=== PATIENT | male | born 1960 | race Caucasian/White ===

== ENCOUNTER 2018-02-02 08:22 | Emergency (ER) | payer OTHER ==
[~2018-02-02] VITALS: Ht 180.3 cm; Wt 172.4 kg
[~2018-02-02 08:22] MED LIST: ASPIRIN81 M4 PO; ATORVASTATIN CA40 M1 PO; DOXYCYCLINE HY100 M4 PO; MELOXICAM15 M1 PO; NITROGLYCERIN0.4 M1 SL; VICODIN 5-3001 EACH PO
[2018-02-02 08:44] LABS: ABSOLUTE BASOPHIL COUNT 0.2 /CUMM (0.0-0.2); ABSOLUTE EOSINOPHIL COUNT 0.2 /CUMM (0.0-0.7); ABSOLUTE GRANULOCYTE CT 5.3 /CUMM (1.4-6.5); ABSOLUTE LYMPH COUNT 2.3 /CUMM (1.2-3.4); ABSOLUTE MONOCYTE COUNT 0.5 /CUMM (0.10-0.60); BASOPHIL % 1.8 % (0.0-2.0); EOSINOPHIL % 2.5 % (0-5); GRANULOCYTE % 62.9 % (42.2-75.2); HEMATOCRIT 38.5 % (42-52); MEAN CORPUSCULAR HGB 30.2 PG (27.0-31.0); MEAN CORPUSCULAR HGB CONC 35.5 G/DL (33.0-37.0); MEAN CORPUSCULAR VOLUME 85.2 FL (80.0-94.0); PLATELET COUNT 235 /CUMM (130-400); RBC DISTRIBUTION WIDTH 13.4 % (11.5-14.5); RED BLOOD CELL CT 4.52 /CUMM (4.70-6.10); WHITE BLOOD CELL COUNT 8.4 /CUMM (4.8-10.8)
--- NOTE | 2018-02-02 10:23 | ED GI/GU/ABDOMINAL COMPLAINT ---
History of Present Illness General Chief Complaint: Abdominal Pain/Flank Pain Stated Complaint: RT SIDE ABDOMINAL PAIN Source: patient Exam Limitations: no limitations Vital Signs & Intake/Output Vital Signs & Intake/Output Vital Signs Date Time Temp Pulse Resp B/P B/P Pulse O2 O2 Flow FiO2 Mean Ox Delivery Rate 02/02 1233 69 18 172/89 98 Room Air 02/02 1148 Room Air 02/02 0825 95.9 67 18 180/98 Allergies Coded Allergies: lorazepam (From ATIVAN) (Intermediate, AGITATION 02/02/18) Reconcile Medications Aspirin (Aspirin*) 81 MG TAB.CHEW 81 MG PO DAILY HEART HEALTH . Atorvastatin Calcium 40 MG TABLET 40 MG PO 1700 Heart artieries . Hydrocodone/Acetaminophen (Vicodin 5-300 MG Tablet) 5 MG-300 MG TABLET 1 TAB PO BID PRN PAIN Ibuprofen 800 MG TABLET 1 TAB PO TID PAIN Meloxicam 15 MG TABLET 1 TAB PO DAILY PRN PAIN Nitroglycerin 0.4 MG TAB.SUBL 1 TAB SL AD CHEST PAIN 1st sign of attack; may repeat every 5 minutes until relief; if pain persists after 3 tablets in 15 minutes, prompt medical att . Oxycodone HCl/Acetaminophen (Percocet 5-325 MG Tablet) 5 MG-325 MG TABLET 1-2 TAB PO BID PAIN Triage Note: PT TO ED WITH SUDDEN ONSET OF RIGHT LOWER ABD PAIN SINCE 3AM THIS MORNING "PUT HEAT ON IT AND IT EASED UP A LITTLE BIT", C/O SLIGHT NAUSEA, NO VOMITING OR DIARRHEA. HX KIDNEY STONES "DOESN'T FEEL LIKE THAT". Triage Nurses Notes Reviewed? yes Onset: Abrupt Duration: hour(s):, constant Timing: recent history Quality/Severity: moderate, sharpness, severe Location: right lower quadrant Radiation: no radiation Activities at Onset: none No Modifying Factors: none HPI: 57-year-old male comes into the emergency room with complaints of right-sided abdominal pain has been going on since about 4 AM this morning. Pain woke the patient up out of his sleep. He's had some associated nausea. Denies any fever chills vomiting. Denies any changes in bowel movement. Denies any prior abdominal surgeries. He denies any chest pain shortness of breath. Nothing seems to make the symptoms better. (Dk MONTES,Nile) Past History Travel History Traveled to [place] past 21 day No Medical History Any Pertinent Medical History? 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 No (Nile Lara) Review of Systems Review of Systems Constitutional: Reports: no symptoms. EENTM: Reports: no symptoms. Respiratory: Reports: no symptoms. Cardiovascular: Reports: no symptoms. GI: Reports: see HPI. Genitourinary: Reports: no symptoms. Musculoskeletal: Reports: no symptoms. Skin: Reports: no symptoms. Neurological/Psychological: Reports: no symptoms. Hematologic/Endocrine: Reports: no symptoms. Immunologic/Allergic: Reports: no symptoms. All Other Systems: Reviewed and Negative (Nile Lara) Physical Exam Physical Exam General Appearance: well developed/nourished, alert, awake, mild distress Head: atraumatic Eyes: Bilateral: normal appearance. Ears, Nose, Throat, Mouth: hearing grossly normal, moist mucous membrane Neck: normal inspection Respiratory: normal breath sounds, no respiratory distress Cardiovascular: regular rate/rhythm Gastrointestinal: soft, tenderness (RLQ) Back: normal inspection Extremities: normal range of motion Neurologic/Psych: awake, alert, oriented x 3, normal gait, normal mood/affect Skin: intact, normal color Core Measures ACS in differential dx? No Sepsis Present: No Sepsis Focused Exam Completed? No (Nile Lara) Progress Differential Diagnosis: appendicitis, biliary colic, cholecystitis, diverticulitis, gastritis, ischemic bowel, pancreatitis, perforated viscous, SBO , ureterolithiasis, UTI/pyelo, MUSCLE STRAIN Plan of Care: Orders Procedure Date/time Status Add-on Test (ER Only) 02/02 1211 Active EKG 02/02 1211 Active TROPONIN LEVEL 02/02 0830 Complete URINALYSIS 02/02 0828 Complete LIPASE 02/02 0828 Complete LACTIC ACID 02/02 0828 Complete COMPREHENSIVE METABOLIC PANEL 04/19 0828 Complete CBC WITHOUT DIFFERENTIAL 02/03 828 Complete AMYLASE 02/03 828 Complete Laboratory Tests 02/02/18 1128: Lactic Acid Cancelled 02/02/18 0835: Urine Color YEL, Urine Clarity CLEAR, Urine pH 6.5, Ur Specific [place] 1.010, Urine Protein NEG, Urine Ketones NEG, Urine Nitrite NEG, Urine Bilirubin NEG, Urine Urobilinogen 0.2, Ur Leukocyte Esterase NEG, Ur Microscopic EXAM NOT REQUIRED, Urine Hemoglobin NEG, Urine Glucose NEG 02/02/18 0830: Anion Gap 12, Estimated GFR > 60, BUN/Creatinine Ratio 19.0, Glucose 103 H, Lactic Acid 1.1, Calcium 9.7, Total Bilirubin 0.6, AST 16 L, ALT 27, Alkaline Phosphatase 69, Troponin I < 0.01, Total Protein 7.4, Albumin 4.2, Globulin 3.2, Albumin/Globulin Ratio 1.3, Amylase 48, Lipase 87, CBC w Diff NO MAN DIFF REQ, RBC 4.52 L, MCV 85.2, MCH 30.2, MCHC 35.5, RDW 13.4, MPV 9.0, Gran % 62.9, Lymphocytes % 27.1, Monocytes % 5.7, Eosinophils % 2.5, Basophils % 1.8, Absolute Granulocytes 5.3, Absolute Lymphocytes 2.3, Absolute Monocytes 0.5, Absolute Eosinophils 0.2, Absolute Basophils 0.2 Diagnostic Imaging: Viewed by Me: CT Scan. Discussed w/RAD: CT Scan. Radiology Impression: PATIENT: EDNA BELLE PRESENT AGE: 57 PATIENT ACCOUNT NO: [id number] : 62 LOCATION: [facility] ORDERING PHYSICIAN: Nile MONTES SERVICE DATE: 02/02/18 EXAM TYPE: CAT - CT ABD & PELVIS W IV CONTRAST EXAMINATION: CT ABDOMEN AND PELVIS WITH CONTRAST CLINICAL INFORMATION: Right-sided abdominal pain COMPARISON: None TECHNIQUE: Multidetector volumetric imaging was performed of the abdomen and pelvis following IV administration of 95 mL of Optiray 320 intravenous contrast. Sagittal and coronal reformatted images were obtained on the technologist's workstation. DLP: 1525 mGy-cm FINDINGS: LUNG BASES: The visualized lung bases are unremarkable. LIVER, GALLBLADDER, AND BILIARY TREE: The liver is normal in size, shape, and attenuation. No focal hepatic lesion or biliary ductal dilatation is present. The gallbladder is unremarkable with no evidence of radiopaque gallstones, gallbladder wall thickening, or obvious pericholecystic inflammatory changes. PANCREAS: Unremarkable. SPLEEN: Unremarkable. ADRENAL GLANDS: Unremarkable. KIDNEYS AND URETERS: The kidneys are normal in size, shape , and attenuation. No hydronephrosis, hydroureter, or calculi seen. No perinephric stranding. BLADDER: Unremarkable. GASTROINTESTINAL TRACT: The small and large bowel are unremarkable. The appendix is unremarkable. ABDOMINAL WALL: No significant hernia is appreciated. LYMPH NODES: Normal. VASCULAR: Unremarkable. PELVIC VISCERA: Unremarkable. OSSEOUS STRUCTURES: Moderate L5-S1 degenerative disc disease. L4-L5 facet arthropathy. No suspicious bone lesion. IMPRESSION: No focal inflammatory process or obstruction. Normal appendix. DICTATED BY: Alberto Paredes MD DATE/TIME DICTATED:02/02/181142 CORDUROY BRUSHER OPERATOR:JOSE MIGUEL DATE/TIME TRANSCRIBED:02/02/181142 CONFIDENTIAL, DO NOT COPY WITHOUT APPROPRIATE AUTHORIZATION. <Electronically signed in Other Vendor System> SIGNED BY: Alberto Paredes MD 02/02/18 1150 Initial ED EKG: normal sinus rhythm, BORDERLINE T WAVE ABNORMALITIES Comments: 02/02/2018 1:36:13 PM Patient clinically looks well. Patient is in no apparent distress. Patient is nontoxic-appearing. After all the results were discussed the patient mentioned that yesterday he was lifting plywood and he felt a twinge in the right side of his abdomen . He did not think much of it initially but then the pain started later on. No acute findings on CT scan or blood work. Patient feels better after morphine. Likely muscular related. Patient was recommended to follow up with primary care doctor. Return if any other concerns. Understands and agrees with plan of care. (Dk MONTES,Nile) Departure Departure Disposition: HOME OR SELF CARE Condition: Stable Clinical Impression Primary Impression: Abdominal pain Secondary Impressions: Muscle strain Referrals: Lennie RIVERA,Jamil Butler (PCP/Family) Additional Instructions: Take Percocet and ibuprofen as prescribed. Follow-up with your primary care doctor. Return if any concerns worsening symptoms. Please go over all results of today's visit with your primary care doctor. Contact your primary care doctor to let them know you were here in the emergency room. There may be nonspecific findings which may not be related to your visit today here in the emergency room but may require further evaluation and chronic monitoring by your primary care doctor. If you had a laceration today the chance of foreign body always remains. You should follow-up with your primary care doctor for recheck in 3-5 days for a wound check. If you had an x-ray done there is a chance that a fracture could have been missed on initial read and you should follow-up with your primary care doctor for repeat x-rays if symptoms persist. If your blood pressure was elevated here in the emergency room please have rechecked by [facility] primary care doctor within the next 48. If you were prescribed a narcotic here in the emergency room or any type of controlled substances you're not allowed to drive while taking this medication or operate any type of heavy machinery. Narcotics can make you feel lightheaded dizziness nausea and can cause constipation. You may need to knot picker cloth a stool softener. Thank you for choosing [facility] emergency room. Please return to the emergency room immediately if you have any other concerns worsening of symptoms. Departure Forms: Customer Survey General Discharge Information Prescriptions: Current Visit Scripts Oxycodone HCl/Acetaminophen (Percocet 5-325 MG Tablet) 1-2 TAB PO BID #10 TAB Ibuprofen 1 TAB PO TID #30 TAB (Nile Lara) PA/DIRECTOR OF INTEGRATED MARKETING Co-Sign Statement Statement: ED Attending supervision documentation- I saw and evaluated the patient. I have also reviewed all the pertinent lab results and diagnostic results. I agree with the findings and the plan of care as documented in the PA's/DIRECTOR OF INTEGRATED MARKETING's documentation. x I have reviewed the ED Record and agree with the PA's/DIRECTOR OF INTEGRATED MARKETING's documentation. [] Additions or exceptions (if any) to the PAs/DIRECTOR OF INTEGRATED MARKET[employer]'s note and plan are summarized below: [] (Manuelito RIVERA,Saulo)
--- NOTE | 2018-02-02 11:50 | CT SCAN REPORT ---
EXAMINATION: CT ABDOMEN AND PELVIS WITH CONTRAST CLINICAL INFORMATION: Right-sided abdominal pain COMPARISON: None TECHNIQUE: Multidetector volumetric imaging was performed of the abdomen and pelvis following IV administration of 95 mL of Optiray 320 intravenous contrast. Sagittal and coronal reformatted images were obtained on the technologist's workstation. DLP: 1525 mGy-cm FINDINGS: LUNG BASES: The visualized lung bases are unremarkable. LIVER, GALLBLADDER, AND BILIARY TREE: The liver is normal in size, shape, and attenuation. No focal hepatic lesion or biliary ductal dilatation is present. The gallbladder is unremarkable with no evidence of radiopaque gallstones, gallbladder wall thickening, or obvious pericholecystic inflammatory changes. PANCREAS: Unremarkable. SPLEEN: Unremarkable. ADRENAL GLANDS: Unremarkable. KIDNEYS AND URETERS: The kidneys are normal in size, shape, and attenuation. No hydronephrosis, hydroureter, or calculi seen. No perinephric stranding. BLADDER: Unremarkable. GASTROINTESTINAL TRACT: The small and large bowel are unremarkable. The appendix is unremarkable. ABDOMINAL WALL: No significant hernia is appreciated. LYMPH NODES: Normal. VASCULAR: Unremarkable. PELVIC VISCERA: Unremarkable. OSSEOUS STRUCTURES: Moderate L5-S1 degenerative disc disease. L4-L5 facet arthropathy. No suspicious bone lesion. IMPRESSION: No focal inflammatory process or obstruction. Normal appendix.
[2018-02-02 12:33] VITALS: BP 172/89
[2018-02-02] MEDS ORDERED: IBUPROFEN800 M1 PO (12:35)
[2018-02-02] MEDS ORDERED: PERCOCET 5-3251 EACH PO (12:35)
== END 2018-02-02 12:41 ==
LOC: ERH 08:22
PROVIDERS: Emergency Medicine
DX: S39.011A Strain of muscle, fascia and tendon of abdomen, initial encounter (principal); X58.XXXA Exposure to other specified factors, initial encounter; Y92.9 Unspecified place or not applicable; Y93.9 Activity, unspecified
CPT/HCPCS: 74177; 81003; 93005; 93010; 96374; 96375; 96376; J2405

== ENCOUNTER 2018-03-22 06:41 | Observation (INO) | payer OTHER ==
[~2018-03-22] VITALS: Ht 180.3 cm; Wt 174.7 kg
[~2018-03-22 06:41] MED LIST changes: +IBUPROFEN800 M1 PO; +PERCOCET 5-3251 EACH PO
--- NOTE | 2018-03-22 06:46 | ED CARDIAC/CP/PALPITATIONS ---
History of Present Illness General Chief Complaint: Chest Pain Stated Complaint: CP Source: patient, EMS Exam Limitations: no limitations Vital Signs & Intake/Output Vital Signs & Intake/Output Vital Signs Date Time Temp Pulse Resp B/P B/P Pulse O2 O2 Flow FiO2 Mean Ox Delivery Rate 03/22 0645 97.9 67 24 188/99 96 Room Air Allergies Coded Allergies: lorazepam (From ATIVAN) (Intermediate, AGITATION 02/02/18) Triage Nurses Notes Reviewed? yes Onset: Gradual Duration: hour(s):, better, gone now Timing: recent history Quality/Severity: moderate Location: central Radiation: LEFT SHOULDER Activities at Onset: sleep Modifying Factors: Improves With: nitroglycerin, oxygen. Nitro Today/Relief: 0.4 mg x 3, provided by EMS, provided at home Aspirin Today: 81 mg x 4, provided at home Associated Symptoms: shortness of breath HPI: 58-year-old gentleman history of unstable angina but no history of heart attack, presents with 5-6 out of 10 substernal chest pressure that radiated to his left shoulder. He states that he awoke approximately 2 hours prior to presentation in the emergency department with the discomfort. He notes that he took asa 81x4 at home, 2 nitros at home, "and I still had the pain, but then the medics gave me a nitro and the pain went away completely." He notes mild -moderate shortness of breath. NO fever, chills, wheezing, abdominal pain. He is otherwise well. (Antoinette RIVERA,Mehul Cortez) Reconcile Medications Atorvastatin Calcium 40 MG TABLET 40 MG PO 1700 Heart artieries . Lisinopril 20 MG TABLET 1 TAB PO DAILY HEART (Reported) (Alberto Hay DO) Past History Travel History Traveled to [place] past 21 day No Medical History Any Pertinent Medical History? 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 No (Antoinette RIVERA,Mehul Cortez) Review of Systems Review of Systems Constitutional: Denies: see HPI. (Antoinette RIVERA,Mehul Cortez) Physical Exam Physical Exam Cardiovascular: regular rate/rhythm, see below Comments: Review of Systems - except as otherwise noted in HPI Review of Systems Constitutional:no symptoms. EENTM:no symptoms. Respiratory:no symptoms. Cardiovascular:no symptoms. GI:no symptoms. Genitourinary:no symptoms. Musculoskeletal:no symptoms. Skin:no symptoms. Neurological/Psychological:no symptoms. Hematologic/Endocrine:no symptoms. Immunologic/Allergic:no symptoms. All Other Systems: Reviewed and Negative Physical Exam Physical Exam General Appearance: well developed/nourished, no apparent distress Head: atraumatic, normal appearance Eyes: Bilateral: normal appearance. Ears, Nose, Throat: normal pharynx, normal ENT inspection Neck: normal inspection, supple, full range of motion Respiratory: normal breath sounds, chest non-tender, no respiratory distress, quiet respiration, lungs clear Cardiovascular: regular rate/rhythm Gastrointestinal: normal bowel sounds, soft, non-tender, no organomegaly Back: normal inspection, normal range of motion Extremities: normal inspection, normal capillary refill, normal range of motion, no edema Neurologic/Psych: no motor/sensory deficits, awake, alert, oriented x 3 Skin: intact, normal color, warm/dry Core Measures ACS in differential dx? Yes (pt took aspirin at home) CVA/TIA Diagnosis No Sepsis Present: No Sepsis Focused Exam Completed? No (Antoinette RIVERA,Mehul Cortez) Progress Differential Diagnosis: AMI, CHF/pulm edema, costochondritis, myocarditis, unstable angina Plan of Care: Orders Procedure Date/time Status Heart Healthy Diet 03/[address] in observation 03/22 819 Active ED Holding Orders 03/22 819 Active Code Status 03/22 08 Active TROPONIN LEVEL 03/22 645 Complete LIPASE 03/22 645 Complete HEPATIC FUNCTION PANEL 03/22 645 Complete D-DIMER 03/22 645 Complete CBC WITHOUT DIFFERENTIAL 03/22 645 Complete BASIC METABOLIC PANEL 03/22 645 Complete AMYLASE 03/22 645 Complete EKG 03/22 06 Active Laboratory Tests 03/22/18 0703: Anion Gap 11, Estimated GFR > 60, BUN/Creatinine Ratio 24.5, Glucose 101 H, Calcium 9.7, Total Bilirubin 0.3, Direct Bilirubin 0.2, AST 17, ALT 26, Alkaline Phosphatase 61, Troponin I < 0.01, Total Protein 6.9, Albumin 3.9, Amylase 46, Lipase 82, D-Dimer High Sensitivty < 200, CBC w Diff NO MAN DIFF REQ, RBC 4.51 L, MCV 86.2, MCH 29.8, MCHC 34.6, RDW 13.3, MPV 9.1, Gran % 62.5, Lymphocytes % 26.8, Monocytes % 6.6, Eosinophils % 3.4, Basophils % 0.7, Absolute Granulocytes 5.6, Absolute Lymphocytes 2.4, Absolute Monocytes 0.6, Absolute Eosinophils 0.3, Absolute Basophils 0.1 Diagnostic Imaging: Viewed by Me: Radiology Read. Discussed w/RAD: Radiology Read. Initial ED EKG: normal axis, normal intervals, normal p-waves, normal QRS complex, normal sinus rhythm Hand-Off Endorsed To: Alberto Hay DO Endorsed Time: 0700 Pending: labs, Xray Comments: pt chest pain free upon arrival to ED. (Antoinette RIVERA,Mehul Cortez) Comments: Attending addendum at 8:[address] Alberto Hay: I assumed care from Dr. Curry at 7 AM. At that time the patient was chest pain-free after 3 doses of nitroglycerin (2 at home and one by EMS) and we were awaiting chest x-ray and troponin results. Chest x-ray resulted showing possible retrocardiac opacity, however the view was limited by his habitus. Troponin was negative. Discussed the case with Dr. Luther from cardiology who agreed with my recommendation for hospitalization for nitroglycerin responsive chest pain. (Alberto Hay DO) Departure Departure Disposition: STILL A PATIENT Condition: Stable Clinical Impression Primary Impression: Chest pain Referrals: Lennie RIVERA,Jamil Butler (PCP/Family) Departure Forms: Customer Survey General Discharge Information (Antoinette RIVERA,Mehul Cortez) Observation Note Spoke With: Desire Mckeon MD Physician Advisor Notified: SERENA GARZA DO Place Patient In: ED Observation Rationale for Observation: My rational for observation is as follows patient has cardiac chest pain with negative troponin and ECG. He will likely undergo troponin trending and cardiology consultation but the expectation is that he will be discharged from the hospital and under 24 hours. (Alberto Hay DO) Critical Care Note Critical Care Note Critical Care Time: non-applicable (Antoinette RIVERA,Mehul Cortez)
--- NOTE | 2018-03-22 07:22 | RADIOLOGY REPORT ---
EXAMINATION: XR PORTABLE CHEST CLINICAL INFORMATION: Chest pain COMPARISON: Multiple priors, most recent 08/17/2017. TECHNIQUE: Portable frontal view of the chest was obtained. Study is limited due to patient body habitus. FINDINGS: The cardiomediastinal silhouette is unchanged. No significant cardiomegaly. Suggestion of left retrocardiac opacity. Remainder of the lungs is relatively clear. The peripheral hemithoraces are not well evaluated due to underpenetration. No evidence of pneumothorax. Osseous detail is limited. IMPRESSION: Limited exam due to patient body habitus. Possible left retrocardiac opacity.
[2018-03-22 07:26] LABS: ABSOLUTE BASOPHIL COUNT 0.1 /CUMM (0.0-0.2); ABSOLUTE EOSINOPHIL COUNT 0.3 /CUMM (0.0-0.7); ABSOLUTE GRANULOCYTE CT 5.6 /CUMM (1.4-6.5); ABSOLUTE LYMPH COUNT 2.4 /CUMM (1.2-3.4); ABSOLUTE MONOCYTE COUNT 0.6 /CUMM (0.10-0.60); BASOPHIL % 0.7 % (0.0-2.0); EOSINOPHIL % 3.4 % (0-5); GRANULOCYTE % 62.5 % (42.2-75.2); HEMATOCRIT 38.9 % (42-52); MEAN CORPUSCULAR HGB 29.8 PG (27.0-31.0); MEAN CORPUSCULAR HGB CONC 34.6 G/DL (33.0-37.0); MEAN CORPUSCULAR VOLUME 86.2 FL (80.0-94.0); MEAN PLATELET VOLUME 9.1 FL (7.4-10.4); PLATELET COUNT 238 /CUMM (130-400); RBC DISTRIBUTION WIDTH 13.3 % (11.5-14.5); RED BLOOD CELL CT 4.51 /CUMM (4.70-6.10); WHITE BLOOD CELL COUNT 8.9 /CUMM (4.8-10.8)
[2018-03-22] MEDS ORDERED: LISINOPRIL20 M1 PO (08:14)
--- NOTE | 2018-03-22 08:43 | History & Physical ---
Linnea RIVERA,Heidi 03/22/18 0842: General Information and HPI MD Statement: I have seen and personally examined EDNA BELLE and documented this H&P. The patient is a 58 year old M who presented with a patient stated chief complaint of [CHEST PAIN]. Source of Information: patient Exam Limitations: no limitations History of Present Illness: Patient is 58-year-old male with past medical history significant for unstable angina, hypertension, MARTA on CPAP, nephrolithiasis, gout, a rotator cuff tear presented to [facility] with sudden onset chest pain started in the middle of the night this morning. Patient was in his usual state of health after his recent discharge August and remained active. A week ago he started developing pink eye. For the past few days he has been experiencing feeling weak, wet cough, nasal discharge. Today morning he started experiencing substernal chest pain radiating down the left arm - stabbing in nature 5/10 intensity, associated with nausea. He did have shortness of breath with the pain. He started taking aspirin along with nitroglycerin which did not relieve his pain. He did describe his pain like gas pocket in the back of the chest. he denies recent intake of NSAIDs, heart burning, change in pain with position/breathing. During my interview patient was very short of breath, denies any chest pain. Meds - On lisinopril, atorvastatin, tobramycin eye drops family history Mother - stroke at 40's Father - diabetes and CHF. Social Quit smoking 25yrs ago, Denies alcohol/drug intake Surgical Rotator cuff tear 2 Cardiac caths - clean coronaries. last one my . Allergies/Medications Allergies: Coded Allergies: lorazepam (From ATIVAN) (Intermediate, AGITATION 02/02/18) Home Med list Atorvastatin Calcium 40 MG TABLET 40 MG PO 1700 Heart artieries . 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 spouse Services at Home: None Smoking Status: Former Smoker ETOH Use: denies use Illicit Drug Use: denies illicit drug use Functional Ability ADLs Independent: dressing, eating, toileting, bathing. Ambulation: independent IADLs Independent: shopping, housework, finances, food prep, telephone, transportation , medication admin. Review of Systems Review of Systems Constitutional: Reports: see HPI. EENTM: Reports: eye drainage, nasal congestion. Cardiovascular: Reports: see HPI. Respiratory: Reports: see HPI. GI: Reports: see HPI. Genitourinary: Reports: see HPI. Musculoskeletal: Reports: see HPI. Exam & Diagnostic Data Last 24 Hrs of Vital Signs/I&O Vital Signs Date Time Temp Pulse Resp B/P B/P Pulse O2 O2 Flow FiO2 Mean Ox Delivery Rate 03/22 0645 97.9 67 24 188/99 96 Room Air Intake & Output 03/22 1600 03/22 0800 03/22 0000 Intake Total Output Total Balance Patient 171.912 kg Weight Physical Exam General Appearance Alert, Oriented X3, Cooperative, No Acute Distress Skin No Rashes, No Breakdown Skin Temp/Moisture Exam: Warm/Dry Sepsis Skin Exam (color): Normal for Ethnicity HEENT Atraumatic, PERRLA, EOMI, erythematous, erythematous mucous membranes Neck Supple Cardiovascular Normal S1, Normal S2, No Murmurs Lungs Clear to Auscultation, Normal Air Movement Abdomen Normal Bowel Sounds, Soft, No Tenderness Neurological Normal Gait, Normal Speech, Strength at 5/5 X4 Ext, Normal Tone Extremities No Clubbing, No Cyanosis, No Edema Vascular Normal Pulses, Pulses Symmetrical Body Front and Back (Adult) 1) conjunctivitis Last 24 Hrs of Labs/Jamal: Laboratory Tests 03/22/18 1018: pH 7.44, pCO2 35, pO2 110 H, HCO3 23, ABG O2 Sat (Measured) 97.0, P-50 (Temp Corrected) N, Carboxyhemoglobin 0.5 L, O2 Concentration % 2LPM, O2 Delivery Method NC, Phlebotomy Draw Site RIGHT RADIAL 03/22/18 0703: Anion Gap 11, Estimated GFR > 60, BUN/Creatinine Ratio 24.5, Glucose 101 H, Hemoglobin A1c Pending, Uric Acid 9.3 H, Calcium 9.7, Total Bilirubin 0.3, Direct Bilirubin 0.2, AST 17, ALT 26, Alkaline Phosphatase 61, Troponin I < 0.01 , Total Protein 6.9, Albumin 3.9, Amylase 46, Lipase 82, TSH Pending, Free T4 Pending, D-Dimer High Sensitivty < 200, CBC w Diff NO MAN DIFF REQ, RBC 4.51 L, MCV 86.2, MCH 29.8, MCHC 34.6, RDW 13.3, MPV 9.1, Gran % 62.5, Lymphocytes % 26.8, Monocytes % 6.6, Eosinophils % 3.4, Basophils % 0.7, Absolute Granulocytes 5.6, Absolute Lymphocytes 2.4, Absolute Monocytes 0.6, Absolute Eosinophils 0.3, Absolute Basophils 0.1 Microbiology 03/22 958 LOWER RESP: Respiratory Culture - ORD 03/22 958 LOWER RESP: Gram Stain - ORD 03/22 957 NASOPHARYN: Influenza Virus A & B Rapid Smear - COMP Diagnostic Data EKG Results NSR with j point elevation on V3, flat T wave in lead III. CXR Results IMPRESSION: Limited exam due to patient body habitus. Possible left retrocardiac opacity. Assessment/Plan Assessment: Patient is a fairly 58 male with significant history of unstable angina, twice negative coronary catheterizations in the past, MARTA on CPAP, hypertension presents to [facility] with sudden onset stabbing substernal 5/10 chest pain in setting of a viral infection. Vital signs at the time of presentation are significant for a blood pressure of 188/99 mmHg, saturating well on RA. Physical exam is unremarkable. Labs did show normal white count, H&H stable, normal electrolyte pattern with BUN/Cr of 27/1.1. D-Dimer <200. CXR concerning for retrocardiac opacity. Differentials 1. Viral illness causing unstable angina 2. Hypertensive urgency in the setting of sympathetic response to infection 3. Viral myocarditis 4. Demand induced symptomatic ACS 5. Heart burn Plan Admit to telemetry floor as observation Chest pain Etiologies: viral stress or atherosclerotic progression (stable angina) or unstable angina. Most likely cardiac in nature, not responding to ASA and Nitroglycerine suggest other etiologies. Probably GI related given use of NSAID in the past. He had a normal stress test in the recent admission on . * Serial EKG and trop * Discontinue Lisinopril in the setting of dry cough * Started on ASA, Losartan 25mg daily, Imdur 30mg daily * Continue Atorvastatin * Cardiology consulted * NPO for stress test tomorrow HTN D/C lisinopril - start losartan 25mg daily and titrate up slowly MARTA on CPAP ABG unremarkable. BMI - 53. D-Dimer negative, low suspicion for PE, active at baseline. Retrocardiac opacity on CXR Patient had viral illness lately. Afebrile, normal white count. Appears congested but normal physical exam. * Monitor off antibiotics * Negative flu swab * Repeat PA and lateral CXR tomorrow * Check CBC, BEP DVT prophylaxis SC heparin Code status Full Code As Ranked By This Provider Problem List: 1. Unstable angina 2. Chest pain at rest 3. HTN (hypertension) 4. Obesity Core Measures/Misc (07/03) Acute Coronary Syndrome ACS Diagnosis: Yes Last Known EF % 50 No TIERRA/ARB d/t EF >40% Congestive Heart Failure Congestive Heart Failure Diagnosis No Cerebrovascular Accident CVA/TIA Diagnosis: No VTE (View Protocol) VTE Risk Factors Acute Medical Illness No Mechanical VTE Prophylaxis d/t N/A MechProphylax Ordered No VTE Pharm Prophylaxis d/t NA PharmProphylax ordered Sepsis (View protocol) Sepsis Present: No If YES complete Sepsis Event Note If YES complete Sepsis Event Note Resident Review Statement Resident Statement: examined this patient, discussed with internet marketer, agreed with internet marketer, discussed with family, reviewed EMR data (avail), discussed with nursing , discussed with case mgmt, reviewed images, amended to note Other Findings: as above Lyric Jara 03/22/18 1330: Core Measures/Misc (07/03) Sepsis (View protocol) If YES complete Sepsis Event Note If YES complete Sepsis Event Note Attending MD Review Statement Attending Statement Attending MD Statement: examined this patient, discuss w/resident/PA/AURICULOTHERAPIST, agreed w/resident/PA/AURICULOTHERAPIST, discussed with family, reviewed EMR data (avail), discussed with nursing, discussed with case mgmt, reviewed images, amended to note Attending Assessment/Plan: Patient here for atypical chest pain in intermediate to high risk patient. Patient placed in observation status in telemetry. Obtain serial cardiac enzymes and ekg, cardiology consult, nuclear stress test inpatient vs outpatient. Monitor bp and resume home meds. gi/dvt prophylaxis full code.
--- NOTE | 2018-03-22 10:40 | Cons- Cardiology ---
General Information and HPI Consulting Request Date of Consult: 03/22/18 Requested By: Lyric Jara MD Reason for Consult: Chest discomfort. Source of Information: patient, family, old records Exam Limitations: no limitations History of Present Illness: Mr. Andrés Ragland is a 58-year-old male with a history of morbid obesity , former heavy tobacco use (discontinued a 10 year 1 pack per day history ~25 years ago), MARTA, gout, osteoarthritis, previous cocaine use and chest pain syndrome (s/p negative cardiac catheterizations at age 35 and 44 years) who presented to the ED this a.m. with a complaint of mild ("4/10"), "sharp", left precordial chest discomfort that began at around 5:00 a.m. while he was getting ready for work with radiation down his left arm and with associated nausea and mild shortness of breath. He took 2 sublingual nitroglycerin and 2 ASA 81 mg without relief and called 911. The die stamping press operator advised him to take additional ASA 81 mg x 4, which he did, and received an additional sublingual nitroglycerin en route to the ED, again without relief. The chest discomfort subsided after he arrived to the ED. The duration of the chest discomfort was over an hour. He was diagnosed with "pink eye" last week and has been using ophthalmologic gentamicin with some improvement and has additionally been feeling fatigued. This morning he also described a cough productive of clear sputum. He denies any fever or chills. Additionally, he has been experiencing a dry cough For the past several months. Allergies/Medications Allergies: Coded Allergies: lorazepam (From ATIVAN) (Intermediate, AGITATION 02/02/18) Home Med List: Atorvastatin Calcium 40 MG TABLET 40 MG PO 1700 Heart artieries . 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 Surgical History Surgical History: ROTATOR CUFF Psychosocial History Services at Home: None Exam & Diagnostic Data Vital Signs and I&O Vital Signs Date Time Temp Pulse Resp B/P B/P Pulse O2 O2 Flow FiO2 Mean Ox Delivery Rate 03/22 0951 63 165/81 03/22 0948 96.5 63 20 165/81 100 Nasal 2.0L Cannula 03/22 0847 97.2 54 22 174/92 100 Nasal 2.0L Cannula 03/22 0645 97.9 67 24 188/99 96 Room Air Intake & Output 03/22 1600 03/22 0800 03/22 0000 03/21 1600 03/21 0800 03/21 0000 Intake Total 0 Output Total Balance 0 Intake, Oral 0 Patient 379 lb Weight Physical Exam: Physical examination: Morbidly obese middle-aged male in no acute distress. Vital signs: See above. HEENT: Normocephalic, atraumatic, EOMI, slightly dry mucous membranes. Neck: No JVD, no bruits. Lungs: Clear to auscultation bilaterally. Heart: S1, S2 (both distant) with no murmur, gallop, or rub. PMI not well felt. Abdomen: Soft, nontender, positive bowel sounds. Extremities: No edema. Labs/Jamal Results: Laboratory Tests 03/22 03/22 1018 0703 Blood Gas pH (7.35 - 7.45 PH) 7.44 pCO2 (35 - 45 TORR) 35 pO2 (80 - 100 TORR) 110 H HCO3 (21 - 28 MEQ/L) 23 ABG O2 Sat (Measured) (>96.0 %) 97.0 P-50 (Temp Corrected) N Carboxyhemoglobin (1.5 - 5.0 %) 0.5 L O2 Concentration % 2LPM O2 Delivery Method NC Chemistry Sodium (137 - 145 mmol/L) 140 Potassium (3.5 - 5.1 mmol/L) 4.3 Chloride (98 - 107 mmol/L) 104 Carbon Dioxide (22 - 30 mmol/L) 25 Anion Gap (5 - 16) 11 BUN (9 - 20 mg/dL) 27 H Creatinine (0.7 - 1.2 mg/dL) 1.1 Estimated GFR (>60 ml/min) > 60 BUN/Creatinine Ratio (7 - 25 %) 24.5 Glucose (65 - 99 mg/dL) 101 H Uric Acid (3.5 - 8.5 mg/dL) 9.3 H Calcium (8.4 - 10.2 mg/dL) 9.7 Total Bilirubin (0.2 - 1.3 mg/dL) 0.3 Direct Bilirubin (< 0.4 mg/dL) 0.2 AST (17 - 59 U/L) 17 ALT (21 - 72 U/L) 26 Alkaline Phosphatase (< 127 U/L) 61 Troponin I (<0.11 ng/ml) < 0.01 Total Protein (6.3 - 8.2 g/dL) 6.9 Albumin (3.5 - 5.0 g/dL) 3.9 Amylase (30 - 110 U/L) 46 Lipase (23 - 300 U/L) 82 Coagulation D-Dimer High Sensitivty (0 - 243 ng/ml) < 200 Hematology CBC w Diff NO MAN DIFF REQ WBC (4.8 - 10.8 /CUMM) 8.9 RBC (4.70 - 6.10 /CUMM) 4.51 L Hgb (14.0 - 18.0 G/DL) 13.4 L Hct (42 - 52 %) 38.9 L MCV (80.0 - 94.0 FL) 86.2 MCH (27.0 - 31.0 PG) 29.8 MCHC (33.0 - 37.0 G/DL) 34.6 RDW (11.5 - 14.5 %) 13.3 Plt Count (130 - 400 /CUMM) 238 MPV (7.4 - 10.4 FL) 9.1 Gran % (42.2 - 75.2 %) 62.5 Lymphocytes % (20.5 - 51.1 %) 26.8 Monocytes % (1.7 - 9.3 %) 6.6 Eosinophils % (0 - 5 %) 3.4 Basophils % (0.0 - 2.0 %) 0.7 Absolute Granulocytes (1.4 - 6.5 /CUMM) 5.6 Absolute Lymphocytes (1.2 - 3.4 /CUMM) 2.4 Absolute Monocytes (0.10 - 0.60 /CUMM) 0.6 Absolute Eosinophils (0.0 - 0.7 /CUMM) 0.3 Absolute Basophils (0.0 - 0.2 /CUMM) 0.1 Miscellaneous Phlebotomy Draw Site RIGHT RADIAL Diagnostic Data EKG Results 03/22/2018: Normal sinus rhythm and otherwise unremarkable. CXR Results 03/22/2018: No acute cardiopulmonary process. Other Results Echocardiogram 08/18/2018: Normal left ventricular size with mild left ventricular hypertrophy. Normal systolic function with no obvious regional wall motion abnormalities based on limited views. Normal left ventricular diastolic filling pattern for age. The ejection fraction is visually estimated at 50%. Normal right ventricular size and function. Normal atrial size. Normal-appearing mitral, aortic, tricuspid, and pulmonic valves. No valvular regurgitation or stenosis. No pericardial effusion. Normal size aortic root. Nuclear stress test 08/18/2018: Normal rest and stress perfusion images. Assessment/Plan Assessment/Plan 58-y-o-w-m w/ hx of morbid obesity, fmr heavy tob use (d/c'd 10 pk yr hx ~25 yrs ago), MARTA, gout, OA, previous cocaine use & CP syndrome (s/p negative cardiac caths at age 35 & 44 yrs; negative nuclear stress test 08/18/2017) who presented to the ED this a.m. w/ a c/o mild ("4/10"), "sharp", L precordial chest discomfort that began ~5:00 a.m. while he was getting ready for work w/ radiation down his L arm and w/assoc nausea & mild SOB. Suspect CP syndrome, but given his multiple risk factors for CAD, it is appropriate to admit to telemetry for serial cardiac enzyme determination, serial ECGs, etc. Recommendations: * Admit to telemetry, follow-up troponins, follow-up ECGs. * Make nothing by mouth after midnight tonight for nuclear stress test in a.m., assuming he remains clinically stable, rules out for myocardial necrosis, and has no acute electrocardiographic changes observed. * Consider switch from the TIERRA inhibitor, lisinopril to an angiotensin receptor azul, such as losartan 50 mg daily given his chronic dry cough. This can be titrated up as needed. * Continue treatment for pink eye. * Do not think we need to repeat an echocardiogram, as he had one in August 2017. * Note negative d-dimer. * Check stool for occult blood given mild chronic anemia. * Suspect some mild intravascular depletion based on BUN/creatinine and would gently hydrate. * Check glycosylated hemoglobin A1c, free T4, TSH, magnesium level. * DVT prophylaxis. Further recommendations will follow, Thank you. Consult Acknowledgment - Thank you for your consult request.
[2018-03-23 00:05] VITALS: BP 126/72
[2018-03-23 06:42] VITALS: BP 128/90
--- NOTE | 2018-03-23 09:17 | PN- Housestaff ---
See Addendum Subjective Follow-up For: Chest pain. Tele-Events Since Last Visit: Sinus rhythm Subjective: Patient is unhappy about being nothing by mouth and not knowing the time for his stress test. Otherwise, he denies any repeat episodes of chest pain; palpitation or shortness of breath. No GI or urinary complaints. Review of Systems Constitutional: Reports: see HPI. Objective Last 24 Hrs of Vital Signs/I&O Vital Signs Date Time Temp Pulse Resp B/P B/P Pulse O2 O2 Flow FiO2 Mean Ox Delivery Rate 03/23 0642 97.7 72 20 128/90 97 Room Air 03/23 0022 76 94 03/23 0005 97.5 64 20 126/72 97 CPAP 03/22 2140 68 98 03/22 1945 Room Air Room Air 03/22 1332 76 144/90 03/22 1207 99 Room Air 03/22 0951 63 165/81 03/22 0948 96.5 63 20 165/81 100 Nasal 2.0L Cannula Intake & Output 03/23 1600 03/23 0800 03/23 0000 Intake Total 400 720 Output Total Balance 400 720 Intake, IV 400 Intake, Oral 0 720 Patient 385 lb Weight Weight Bed scale Measurement Method Physical Exam General Appearance: Alert, Oriented X3, Cooperative Cardiovascular: Regular Rate, Normal S1, Normal S2 Lungs: Clear to Auscultation, Normal Air Movement Abdomen: Normal Bowel Sounds, Soft Extremities: No Clubbing, No Cyanosis, No Edema Current Medications: Current Medications Sig/Daniella Start time Last Medication Dose Route Stop Time Status Admin Acetaminophen 650 MG Q6P PRN 03/22 1000 AC 03/23 PO 0636 Aspirin 81 MG DAILY 03/23 900 AC PO Atorvastatin Calcium 40 MG 1700 03/22 1700 AC 03/22 PO 1628 Erythromycin 1 ELSY 4 TIMES/DAY 03/22 0954 DC OPH Guaifenesin 600 MG Q12 03/22 0957 AC 03/22 PO 2020 Heparin Sodium 5,000 UNIT Q8 03/22 1422 AC 03/23 (Porcine) SC 0637 Isosorbide 30 MG DAILY 03/22 1110 AC 03/22 Mononitrate PO 1332 Lisinopril 0 .STK-MED ONE 03/22 0945 DC PO Lisinopril 20 MG DAILY 03/22 0917 DC 03/22 PO 0951 Losartan Potassium 25 MG DAILY 06/07 0900 AC PO Nitroglycerin 0.5 GM Q6 PRN 03/22 1000 AC TOP Omeprazole 40 MG DAILY AC 03/22 0952 AC 03/23 PO 0636 Sodium Chloride 1,000 ML Q20H 03/22 1315 DC 03/22 IV 03/23 0914 1628 Tobramycin 1 GTT 4 TIMES/DAY 03/22 1300 AC 03/22 OPH 2019 Last 24 Hrs of Lab/Jamal Results Last 24 Hrs of Labs/Mics: Laboratory Tests 03/22/18 1905: Troponin I < 0.01 03/22/18 1357: Troponin I < 0.01 03/22/18 1018: pH 7.44, pCO2 35, pO2 110 H, HCO3 23, ABG O2 Sat (Measured) 97.0, P-50 (Temp Corrected) N, Carboxyhemoglobin 0.5 L, O2 Concentration % 2LPM, O2 Delivery Method NC, Phlebotomy Draw Site RIGHT RADIAL Microbiology 03/22 958 LOWER RESP: Respiratory Culture - COLB 03/22 958 LOWER RESP: Gram Stain - COLB 03/22 957 NASOPHARYN: Influenza Virus A & B Rapid Smear - COMP Assessment/Plan Assessment: 58-year-old gentleman with former heavy tobacco use, obstructive sleep apnea, previous cocaine use, chest pain syndrome (status post negative cardiac cats 2 and a negative nuclear stress test in 2016, presented to [facility] ED with sharp, left-sided precordial chest discomfort with associated nausea and mild shortness of breath. 1. Chest pain syndrome. Serial troponins and EKGs unremarkable thus far. Currently chest pain free. Patient currently nothing by mouth, scheduled for nuclear stress test at 11 AM. He will get the second part of stress test done tomorrow morning. Nothing by mouth at midnight. Continue aspirin, Lipitor. Continue acid suppression with omeprazole. 2. Chronic cough. TIERRA inhibitor changed to ARB, given chronic cough. Patient does not complain of any coughing spells overnight. Full code Heparin sq NPO Problem List: 1. Chest pain at rest 2. Chest pain Pain Ratin Pain Location: Chest Pain Goal: Remain pain free Pain Plan: PRN Tomorrow's Labs & Rationales: Not needed.
[2018-03-23 09:45] VITALS: BP 170/94
[2018-03-23 11:01] VITALS: BP 153/86
--- NOTE | 2018-03-23 11:53 | PN- Cardiology ---
Subjective Subjective: No further chest discomfort. Sinus rhythm on telemetry. Objective Vital Signs and I&Os Vital Signs Date Time Temp Pulse Resp B/P B/P Pulse O2 O2 Flow FiO2 Mean Ox Delivery Rate 03/23 1101 80 153/86 03/23 0945 100 170/94 / 0642 97.7 72 20 128/90 97 Room Air 03/23 0022 76 94 06/07 0005 97.5 64 20 126/72 97 CPAP 03/22 2140 68 98 03/22 1945 Room Air Room Air 03/22 1332 76 144/90 03/22 1207 99 Room Air Intake & Output 03/23 1600 03/23 0800 03/23 0000 03/22 1600 03/22 0800 03/22 0000 Intake Total 400 720 0 Output Total Balance 400 720 0 Intake, IV 400 Intake, Oral 0 720 0 Patient 385 lb 385 lb 380 lb 379 lb Weight Weight Bed scale Estimated Measurement Method Physical Exam: Morbidly obese middle-aged male in no acute distress. Vital signs: See above. HEENT: Normocephalic, atraumatic, EOMI, slightly dry mucous membranes. Neck: No JVD, no bruits. Lungs: Clear to auscultation bilaterally. Heart: S1, S2 (both distant) with no murmur, gallop, or rub. PMI not well felt. Abdomen: Soft, nontender, positive bowel sounds. Extremities: No edema. Current Medications: Current Medications Sig/Daniella Start time Last Medication Dose Route Stop Time Status Admin Acetaminophen 650 MG Q6P PRN 03/22 1000 AC 03/23 PO 0636 Aspirin 81 MG DAILY 03/23 0900 AC 03/23 PO 0952 Atorvastatin Calcium 40 MG 1700 03/22 1700 AC 03/22 PO 1628 Dipyridamole 60 MG ONE ONE 03/23 1015 DC Dextrose/Water 28 ML IV 03/23 1016 Guaifenesin 600 MG Q12 03/22 0957 AC 03/22 PO 2020 Heparin Sodium 5,000 UNIT Q8 03/22 1422 AC 03/23 (Porcine) SC 0637 Isosorbide 30 MG DAILY 03/22 1110 AC 03/23 Mononitrate PO 0952 Losartan Potassium 25 MG DAILY 03/23 0900 AC 03/23 PO 0952 Nitroglycerin 0.5 GM Q6 PRN 03/22 1000 AC TOP Omeprazole 40 MG DAILY AC 03/22 0952 AC 03/23 PO 0636 Oxycodone/ 2 TAB ONCE ONE 03/23 1015 DC 03/23 Acetaminophen PO 03/23 1016 1017 Sodium Chloride 1,000 ML Q20H 03/22 1315 DC 03/22 IV 03/23 0914 1628 Tobramycin 1 GTT 4 TIMES/DAY 03/22 1300 AC 03/23 OPH 0931 Results Last 48 Hrs of Labs/Mics: Laboratory Tests 03/22/18 1905: Troponin I < 0.01 03/22/18 1357: Troponin I < 0.01 03/22/18 1018: pH 7.44, pCO2 35, pO2 110 H, HCO3 23, ABG O2 Sat (Measured) 97.0, P-50 (Temp Corrected) N, Carboxyhemoglobin 0.5 L, O2 Concentration % 2LPM, O2 Delivery Method NC, Phlebotomy Draw Site RIGHT RADIAL 03/22/18 0703: Anion Gap 11, Estimated GFR > 60, BUN/Creatinine Ratio 24.5, Glucose 101 H, Hemoglobin A1c 5.2, Uric Acid 9.3 H, Calcium 9.7, Total Bilirubin 0.3, Direct Bilirubin 0.2, AST 17, ALT 26, Alkaline Phosphatase 61, Troponin I < 0.01, Total Protein 6.9, Albumin 3.9, Amylase 46, Lipase 82, TSH 3.060, Free T4 1.28, D- Dimer High Sensitivty < 200, CBC w Diff NO MAN DIFF REQ, RBC 4.51 L, MCV 86.2, MCH 29.8, MCHC 34.6, RDW 13.3, MPV 9.1, Gran % 62.5, Lymphocytes % 26.8, Monocytes % 6.6, Eosinophils % 3.4, Basophils % 0.7, Absolute Granulocytes 5.6, Absolute Lymphocytes 2.4, Absolute Monocytes 0.6, Absolute Eosinophils 0.3, Absolute Basophils 0.1 Microbiology 03/22 09 NASOPHARYN: Influenza Virus A & B Rapid Smear - COMP Assessment/Plan Assessment/Plan 58-y-o-w-m w/ hx of morbid obesity, fmr heavy tob use (d/c'd 10 pk yr hx ~25 yrs ago), MARTA, gout, OA, previous cocaine use & CP syndrome (s/p negative cardiac caths at age 35 & 44 yrs; negative nuclear stress test 08/18/2017) who presented to the ED yesterday a.m. w/ a c/o mild ("4/10"), "sharp", L precordial chest discomfort that began ~5:00 a.m. while he was getting ready for work w/ radiation down his L arm and w/assoc nausea & mild SOB. Suspect CP syndrome, but given his multiple risk factors for CAD, scheduled him for a pharmacologic stress test. The stress test was well tolerated. He had no clinical or ECG evidence of myocardial ischemia. Imaging is pending. If there is no evidence of ischemia, Mr. Ragland can be discharged to home later today from a cardiac standpoint, if he remains clinically stable. Continue telemetry? Yes
[2018-03-23 13:50] VITALS: BP 134/78
--- NOTE | 2018-03-23 13:51 | RADIOLOGY REPORT ---
EXAMINATION: XR CHEST CLINICAL INFORMATION: Cough, congestion, shortness of breath, chest pain. Rule out infection. Follow-up retrocardiac opacity. COMPARISON: Chest x-ray dated 03/22/2018, 08/17/2017, and 05/31/2013. TECHNIQUE: 2 views of the chest were obtained on 3 images. FINDINGS: The cardiomediastinal silhouette is within normal limits in size. There is mild volume loss with linear atelectatic change seen in the left lung base. No focal consolidation, effusion or pneumothorax is seen. Mild midthoracic and moderate lower thoracic vertebral spondylosis is seen. IMPRESSION: Mild atelectasis in the left lung base. No focal pneumonia.
--- NOTE | 2018-03-23 13:53 | RADIOLOGY REPORT ---
EXAMINATION: XR KNEE, LEFT CLINICAL INFORMATION: Acute onset knee pain. Evaluate for new effusion. History of osteoarthritis. COMPARISON: None TECHNIQUE: Four views of the left knee performed on 5 images. FINDINGS: Diffuse osteopenia. No acute fracture or dislocation. Severe degenerative change in the patellofemoral and medial femoral compartments with joint space narrowing, sclerosis, spurring and cystic changes seen. Relative widening of the lateral femoral compartment is seen with moderate spurring noted. No joint calcifications is seen. Moderate size suprapatellar knee joint effusion is seen. IMPRESSION: 1. No acute fracture or dislocation. 2. Moderate suprapatellar knee joint effusion. 3. Advanced degenerative changes in the left knee, most prominent in the medial femoral and patellofemoral compartments.
--- NOTE | 2018-03-23 14:57 | IV DIPYRIDAMOLE NUCLEAR STRESS ---
Clinical Diagnosis: Chest Pain Instructor Knitting: Danuta Mathew IV DIPYRIDAMOLE INFUSED: 60 mg IV AMINOPHYLLINE INFUSED: 0 mg PATIENT WEIGHT: 385 lbs INTERPRETATION: The patient's baseline EKG revealed sinus rhythm and minor diagnostic ST depression at 85 BPM. Baseline B/P 162/90 mm Hg. The patient received 60 mg of dipyridamole infused intravenously over a 4 minute period. TC99M Myoview was injected after dipyridamole infusion. The patient tolerated the infusion well. There were no EKG changes seen following pharmacologic infusion. Arrhythmias: None IMPRESSION: The test was supervised by the interpreting Nurse Ortho, who was in attendance during the entire test. No EKG evidence of stress induced myocardial ischemia. See separately dictated Nuclear Report.
[2018-03-23 21:45] VITALS: BP 130/90
[2018-03-24 06:44] VITALS: BP 120/76
[2018-03-24] MEDS ORDERED: COZAAR25 M1 PO ×3 (07:33→15:36)
--- NOTE | 2018-03-24 07:35 | Patient Discharge Instructions ---
Discharge Instructions General Discharge Information You were seen/treated for: chest pain chronic cough Special Instructions: Please follow up with your PCP in a week Please follow up with your line tender flakeboard in a week - Please continue taking eye drops. Diet Recommended Diet: Heart Healthy Activity Full Activity/No Limits: Yes Activity Self Limited: Yes Acute Coronary Syndrome Inclusion Criteria At DC or during hospital stay patient has or had the following: ACS DIAGNOSIS Yes Discharge Core Measures Meds if any: Prescribed or Continued at Discharge TIERRA/ARB if EF <40% Yes Aspirin Yes Statin Yes Meds if any: NOT Prescribed or Continued at Discharge Congestive Heart Failure Inclusion Criteria At DC or during hospital stay patient has or had the following: CHF DIAGNOSIS No Discharge Core Measures Meds if any: Prescribed or Continued at Discharge Meds if any: NOT Prescribed or Continued at Discharge Cerebrovascular accident Inclusion Criteria At DC or during hospital stay patient has or had the following: CVA/TIA Diagnosis No Discharge Core Measures Meds if any: Prescribed or Continued at Discharge Meds if any: NOT Prescribed or Continued at Discharge Venous thromboembolism Inclusion Criteria VTE Diagnosis No VTE Type NONE VTE Confirmed by (Test) NONE Discharge Core Measures - Per Current guidelines, there needs to be overlap - treatment for the first 5 days of Warfarin therapy. - If discharged on Warfarin prior to 5 days of - overlap therapy, the patient will need to be - assessed for post discharge needs including - *Post discharge parental anticoagulation - *Warfarin and/or parental anticoagulation education - *Follow up date to check INR post discharge At least 5 days overlap therapy as Inpatient No Meds if any: Prescribed or Continued at Discharge Note: Overlap Therapy is Warfarin and Anticoagulant Meds if any: NOT Prescribed or Continued at Discharge
--- NOTE | 2018-03-24 07:46 | PN- Housestaff ---
Linnea RIVERA,Heidi 03/24/18 0745: Subjective Follow-up For: Chest pain Right knee swelling Subjective: Seen at bedside Reports hearing different opinions on knee swelling. Very frustated and requesting to see his PCP here. Informed it is not possible. Review of Systems Constitutional: Reports: see HPI. Objective Last 24 Hrs of Vital Signs/I&O Vital Signs Date Time Temp Pulse Resp B/P B/P Pulse O2 O2 Flow FiO2 Mean Ox Delivery Rate 03/24 0644 98.4 78 20 120/76 98 CPAP 03/24 0000 96 Room Air 03/23 2209 74 96 03/23 2145 99.1 77 18 130/90 97 Room Air 03/23 1350 97.9 74 20 134/78 99 Room Air 03/23 1101 80 153/86 03/23 0945 100 170/94 03/23 0800 Room Air Intake & Output 03/24 0800 03/24 0000 03/23 1600 Intake Total 440 500 810 Output Total Balance 440 500 810 Intake, IV 250 Intake, Oral 440 500 560 Patient 174.746 kg Weight Physical Exam General Appearance: Alert, Oriented X3, Moderate Distress Skin: No Rashes, No Breakdown HEENT: Atraumatic, PERRLA, EOMI Neck: Supple Cardiovascular: Normal S1, Normal S2 Lungs: Clear to Auscultation, Normal Air Movement Abdomen: Normal Bowel Sounds, Soft, No Tenderness Neurological: Normal Tone, Sensation Intact Extremities: No Clubbing, No Cyanosis, edema around the right knee Current Medications: Current Medications Sig/Daniella Start time Last Medication Dose Route Stop Time Status Admin Acetaminophen 650 MG .STK-MED ONE 03/23 1850 DC PO 03/23 1851 Acetaminophen 650 MG Q6P PRN 03/22 1000 AC 03/23 PO 1855 Aspirin 81 MG DAILY 03/23 0900 AC 03/23 PO 0952 Atorvastatin Calcium 40 MG 1700 03/22 1700 AC 03/23 PO 1737 Dipyridamole 60 MG ONE ONE 03/23 1015 DC 03/23 Dextrose/Water 28 ML IV 03/23 1016 1100 Guaifenesin 600 MG Q12 03/22 0957 AC 03/23 PO 2132 Heparin Sodium 5,000 UNIT Q8 03/22 1422 AC 03/24 (Porcine) SC 0603 Ibuprofen 400 MG 4 TIMES/DAY 03/23 1615 AC 03/24 PO 0615 Isosorbide 30 MG DAILY 03/22 1110 AC 03/23 Mononitrate PO 0952 Losartan Potassium 25 MG DAILY 03/23 0900 AC 03/23 PO 0952 Nitroglycerin 0.5 GM Q6 PRN 03/22 1000 AC TOP Omeprazole 40 MG DAILY AC 03/22 0952 AC 03/24 PO 0603 Oxycodone/ 1 TAB ONCE ONE 03/23 2045 DC 03/23 Acetaminophen PO 03/23 2046 2135 Oxycodone/ 2 TAB ONCE ONE 03/23 1015 DC 03/23 Acetaminophen PO 03/23 1016 1017 Patient Medication 1 ED ONE ONE 03/23 1700 DC Teaching ED 03/23 1701 Sodium Chloride 1,000 ML Q20H 03/22 1315 DC 03/22 IV 03/23 0914 1628 Tobramycin 1 GTT 4 TIMES/DAY 03/22 1300 AC 03/23 OPH 2135 Assessment/Plan Assessment: Patient is a fairly 58 male with significant history of unstable angina, twice negative coronary catheterizations in the past, MARTA on CPAP, hypertension presents to [place] with sudden onset stabbing substernal 5/10 chest pain in setting of a viral infection. Vital signs at the time of presentation are significant for a blood pressure of 188/99 mmHg, saturating well on RA. Physical exam is unremarkable. Labs did show normal white count, H&H stable, normal electrolyte pattern with BUN/Cr of 27/1.1. D-Dimer <200. CXR concerning for retrocardiac opacity. Plan Admit to telemetry floor as observation Chest pain Most likely cardiac in nature, not responding to ASA and Nitroglycerine suggest other etiologies. Probably GI related given use of NSAID in the past. He had a normal stress test in the recent admission on . Serial EKG and trop ruled out ACS. Discontinued Lisinopril in the setting of dry cough. Started on ASA, Losartan 25mg daily, Imdur 30mg daily. We continued Atorvastatin. Cardiology consulted and underwent stress test, which did show a fixed defect involving the apical lateral wall along with a tiny apical setptal wall reversible abnormality present. Cardiology , Patient are aware of the results. Patient was informed that he needs quick follow up with , in the event of return of chest pain/short of breath/any symptoms -- he was informed to come to [place]. Agreeable with the plan. HTN D/C lisinopril - start losartan 25mg daily and titrate up slowly MARTA on CPAP ABG unremarkable. BMI - 53. D-Dimer negative, low suspicion for PE, active at baseline. continued CPAP during admission. Retrocardiac opacity on CXR Resolved. Gout Attack Left knee swelling with effusion, elevated uric acid level consistent with gout. He had h/o gout but not on medications. started on colchicine, indomethacine, prednisone taper. A short course of percocet given. DVT prophylaxis SC heparin Code status Full Code Problem List: 1. Chest pain 2. Gout attack Pain Ratin Pain Location: left knee Pain Goal: Pain 4 or less Pain Plan: tylenol prn Tomorrow's Labs & Rationales: none Lyric Jara 03/24/18 0955: Attending MD Review Statement Attending Statement Attending MD Statement: examined this patient, discuss w/resident/PA/FABRIC WORKER, agreed w/resident/PA/FABRIC WORKER, discussed with family, reviewed EMR data (avail), discussed with nursing, discussed with case mgmt, reviewed images, amended to note Attending Assessment/Plan: Patient c/o knee pain and had knee xray suggestive of moderate effusion with out fever, no leukocytosis and no obvious redness. Very low suspicion of septic arthritis i think most likely from gout and inflammatory response. NSAIDs to control pain and inflammation. Obtain orthopedics consult. Decreased reange of motion present. Chest pain atypical f/u stress test results today. Cardiology appreciated. gi/dvt prophylaxis full code
[2018-03-24 08:52] VITALS: BP 122/72
--- NOTE | 2018-03-24 11:20 | PN- Cardiology ---
Subjective Subjective: No further chest discomfort. Sinus rhythm on telemetry. Complaining of some left knee pain. Objective Vital Signs and I&Os Vital Signs Date Time Temp Pulse Resp B/P B/P Pulse O2 O2 Flow FiO2 Mean Ox Delivery Rate 03/24 0852 122/72 03/24 0850 122/72 03/24 0644 98.4 78 20 120/76 98 CPAP 03/24 0000 96 Room Air 03/23 2209 74 96 03/23 2145 99.1 77 18 130/90 97 Room Air 03/23 1350 97.9 74 20 134/78 99 Room Air Intake & Output 03/24 1600 03/24 0800 03/24 0000 03/23 1600 03/23 0803/23 0000 Intake Total 440 500 810 400 720 Output Total Balance 440 500 810 400 720 Intake, IV 250 400 Intake, Oral 440 500 560 0 720 Patient 385 lb 385 lb Weight Weight Bed scale Measurement Method Physical Exam: Morbidly obese middle-aged male in no acute distress. Vital signs: See above. HEENT: Normocephalic, atraumatic, EOMI, slightly dry mucous membranes. Neck: No JVD, no bruits. Lungs: Clear to auscultation bilaterally. Heart: S1, S2 (both distant) with no murmur, gallop, or rub. PMI not well felt. Abdomen: Soft, nontender, positive bowel sounds. Extremities: No edema. Current Medications: Current Medications Sig/Daniella Start time Last Medication Dose Route Stop Time Status Admin Acetaminophen 650 MG .STK-MED ONE 03/23 1850 DC PO 03/23 1851 Acetaminophen 650 MG Q6P PRN 03/22 1000 AC 03/23 PO 1855 Aspirin 81 MG DAILY 03/23 0900 AC 03/24 PO 0850 Atorvastatin Calcium 40 MG 1700 03/22 1700 AC 03/23 PO 1737 Guaifenesin 600 MG Q12 03/22 0957 AC 03/24 PO 0850 Heparin Sodium 5,000 UNIT Q8 03/22 1422 AC 03/24 (Porcine) SC 0603 Ibuprofen 400 MG 4 TIMES/DAY 03/23 1615 AC 03/24 PO 0615 Indomethacin Sodium 25 MG BID 03/24 0903 AC 03/24 PO 1040 Isosorbide 30 MG DAILY 03/22 1110 AC 03/24 Mononitrate PO 0852 Losartan Potassium 25 MG DAILY 03/23 0900 AC 03/24 PO 0850 Nitroglycerin 0.5 GM Q6 PRN 03/22 1000 AC TOP Omeprazole 40 MG DAILY AC 03/22 0952 AC 03/24 PO 0603 Oxycodone/ 1 TAB ONCE ONE 03/24 1045 DC 03/24 Acetaminophen PO 03/24 1046 1040 Oxycodone/ 1 TAB ONCE ONE 03/235 DC 03/23 Acetaminophen PO 03/23 2046 2135 Patient Medication 1 ED ONE ONE 03/23 1700 NH Teaching ED 03/23 1701 Tobramycin 1 GTT 4 TIMES/DAY 03/22 1300 AC 03/24 OPH 0852 Results Last 48 Hrs of Labs/Mics: Laboratory Tests 03/22/18 1905: Troponin I < 0.01 03/22/18 1357: Troponin I < 0.01 Recent Imaging Studies: CXR 03/23/2018: 1. Mild atelectasis in the left lung base. 2. No focal pneumonia. Left knee x-ray 03/23/2018: 1. No acute fracture or dislocation. 2. Moderate suprapatellar knee joint effusion. 3. Advanced degenerative changes in the left knee, most prominent in the medial femoral and patellofemoral compartments. 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 while he was getting ready for work w/ radiation down his L arm and w/assoc nausea & mild SOB. Suspect CP syndrome, but given his multiple risk factors for CAD, scheduled him for a pharmacologic stress test. The stress test was well tolerated. He had no clinical or ECG evidence of myocardial ischemia. Given his size a 2 day protocol was employed for imaging. He was just taken down for the rest images. If there is no evidence of ischemia, Mr. Ragland can be discharged to home later today from a cardiac standpoint, if he remains clinically stable. Continue telemetry? Yes
[2018-03-24] MEDS ORDERED: PERCOCET 5-3251 EACH PO ×3 (14:58→15:36)
[2018-03-24] MEDS ORDERED: COLCHICINE0.6 M2 PO ×3 (15:08→15:36)
[2018-03-24] MEDS ORDERED: PREDNISONE10 M2 PO ×2 (15:08→15:19)
[2018-03-24] MEDS ORDERED: INDOMETHACIN25 M1 PO ×2 (15:21→15:36)
--- NOTE | 2018-03-24 15:47 | NUCLEAR MEDICINE REPORT ---
PERSANTINE STRESS AND RESTING SPECT MYOCARDIAL PERFUSION IMAGING STUDY WITH GATED SPECT IMAGES: CLINICAL INDICATION: Unstable angina, chest pain. PROCEDURE: Regional myocardial perfusion was assessed using a 2 day protocol. Stress images were obtained on 03/23/2018 following the intravenous administration of 61.5 mCi Tc 99m Myoview. Stress consisted of 60 mg Persantine given intravenously. Following the sestamibi injection, no aminophylline was given intravenously. Rest images were obtained 03/24/2018 following the intravenous administration of 57.5 mCi Technetium 99m Myoview. Single photon emission tomographic (SPECT) images were obtained. SPECT images were acquired in a 64 x 64 matrix of 64 projections over 180 degrees. These were reconstructed into standard short axis, horizontal and vertical long axis cardiac projections. FINDINGS: The post stress images show the left ventricular chamber to be normal in size. There is a small region of moderately decreased activity present in the apical lateral wall. A tiny equivocal abnormality in the apical septal wall is also suggested. There is also decreased activity in the paranasal inferior wall, but this is probably due to attenuation by the adjacent diaphragm. Activity in the other gonzalez appears normal. The rest images are very similar to the post stress images. Abnormalities in the inferolateral and basal inferior wall do not appear significantly changed. Tiny equivocal abnormality in the apical septal wall is not present on the rest images. The images were obtained using a gated SPECT technique, which permits visualization of wall motion and calculation of the left ventricular ejection fraction. Left ventricular chamber is normal in size. No left ventricular wall motion abnormalities are present. The calculated left ventricular ejection fraction is 57% on the stress study. Compared to the previous study dated 08/18/2017, the perfusion abnormalities described above are new. The gated images from the previous study are not available for review in the wall motion cannot be compared. Ejection fraction is slightly higher than on the previous study when it was 48%. IMPRESSION: Abnormal study. A small fixed perfusion abnormality involving the apical lateral wall is present. Adjacent abnormality in the inferior wall is likely due to attenuation by the adjacent diaphragm. A tiny equivocal reversible abnormality in the apical septal wall is very small and is considered equivocal and may be due to an imaging artifact. No additional perfusion abnormalities are noted. Left ventricular wall motion and ejection fraction are normal.
== END 2018-03-24 17:05 ==
LOC: ERH 06:41 → ERHI 08:19 → 1NO 08:19 → ENRESERV 09:34 → ENTRNSPT 10:34 → EDTRNSPT 10:43 → EDTRNSPTSTS 10:43 → EDTRNSPT 10:59 → 1NO 11:33 → CMPTRNSPT 11:40 → 1NO 03-24 17:05
PROVIDERS: Pediatrics
DX: R07.9 Chest pain, unspecified (principal); M25.462 Effusion, left knee; I10 Essential (primary) hypertension; G47.33 Obstructive sleep apnea (adult) (pediatric); E66.01 Morbid (severe) obesity due to excess calories; J98.11 Atelectasis; Z87.891 Personal history of nicotine dependence; Z79.82 Long term (current) use of aspirin
CPT/HCPCS: 1288; 71045; 71046; 73560-LT; 78452; 87070; 87804; 87804-59; 93005; 93010; 93016; 93017; 96372; 96374; A9502; G0378; J1245; J1644; J3490